=== PATIENT | female | born 1990 | race African-American/Black ===

== ENCOUNTER 2025-05-29 23:25 | Emergency (ER) | payer SELFPAY ==
[2025-05-29 23:29] VITALS: BP 116/76; PULSE 71; RESP 16; TEMP 36.9; O2SAT 96; BMI 29.0
--- NOTE | 2025-05-29 23:41 | XRR_ITS ---
PROCEDURE INFORMATION: Exam: XR Right Tibia and Fibula Exam date and time: 05/29/2025 11:45 PM Age: 35 years old Clinical indication: Injury or trauma; Fall; Blunt trauma; Lower leg; Right; EMS arrival for rle injury. Deformity to distal tib/fib. TECHNIQUE: Imaging protocol: Radiologic exam of the right tibia and fibula. Views: 2 views. COMPARISON: No relevant prior studies available. FINDINGS: Bones/joints: Distal transverse shaft fracture of the right tibia with mild medial angulation. No foreshortening. No impaction. Distal transverse shaft fracture of the right fibula with mild medial angulation. No foreshortening. No impaction. Fracture through the base of the right medial malleolus. Apparent widening of the right tibiotalar joint. Soft tissues: Posttraumatic change. XR/XR tibia fibula RT 2V [id number] IMPRESSION: 1. Fractures of the right tibia and fibula as above. 2. Fracture through the base of the medial malleolus with widening of the tibiotalar joint. Recommend dedicated imaging of the right ankle.
[2025-05-30] MEDS: HYDROcodone-acetaminophen 7.5-325 mg Tablet 1 TAB PO (00:05)
--- NOTE | 2025-05-30 00:15 | XRR_ITS ---
PROCEDURE INFORMATION: Exam: XR Right Ankle Exam date and time: 05/30/2025 12:35 AM Age: 35 years old Clinical indication: Injury or trauma; Fracture, traumatic; Displaced; Fibula and tibia; Right; Fracture of distal tibia and fibula. Dedicated ankle series due to widening tibiotalus joint. ; Additional info: Ankle FX TECHNIQUE: Imaging protocol: Radiologic exam of the right ankle. Views: 3 or more views. COMPARISON: CR (LOW EXM, ) 05/29/2025 11:45 PM FINDINGS: Bones/joints: Distal shaft transverse fractures with medial angulation of the tibia and fibula are again noted. Fracture through the base of the medial malleolus, with mild distraction. Soft tissues: Traumatic soft tissue changes throughout the visualized field of view. XR/XR ankle RT min 3V* [id number] IMPRESSION: 1. Fracture through the base of the medial malleolus with mild distraction. Joint spaces overall maintained. 2. Fractures of the tibia and fibula are again seen.
--- NOTE | 2025-05-30 00:26 | ED_ITS ---
HPI - Extremity Problem General: Chief complaint: Extremity Injury, Lower Stated complaint: LEG INJURY Time Seen by Provider: 05/29/25 23:37 Source: patient Mode of arrival: EMS Limitations: language barrier History of Present Illness: Patient is a 35-year-old female who presents emergency department via EMS due to an injury to her right lower leg. Patient is Senegalese-speaking so defense analyst was utilized. She reportedly dropped a large toolbox on her leg, and she arrives with obvious deformity and has not been able to bear weight secondary to pain. No distal paresthesias or paralysis noted. No coolness to the right lower extremity, and her pulses are intact. Reporting 10/10 pain at this time. This occurred approximately 1 hour prior to arrival. MD Complaint: extremity pain Onset (ago): hour(s) Location: right and lower extremity Associated symptoms: Deny chest pain, fever(s) or rash Related Data Previous Rx's ?Medication ?Instructions ?Recorded hydrocodone 7.5 mg-acetaminophen 1 tab PO Q8H PRN pain #20 tabs 05/30/25 325 mg tablet Allergies Allergy/AdvReac Type Severity Reaction Status Date / Time No Known Allergies Allergy Verified 05/29/25 23:33 Review of Systems General: Reports: 10 or more systems reviewed and unremarkable except in HPI and below Const: Denies: fever(s) or chills Card: Denies: chest pain Resp: Denies: dyspnea or productive cough GI: Denies: abdominal pain, nausea, vomiting or diarrhea : Denies: flank pain Musc: Reports: extremity pain (Right lower extremity), extremity swelling (Right lower extremity) and limited range of motion; Denies: neck pain, back pain, joint pain, joint swelling, joint redness, joint warmth or muscle weakness Skin/Breast: Denies: rash Neuro: Denies: headache(s), numbness in extremities or weakness in extremities Physical Exam Const: COMMON NORMALS: no acute distress, patient oriented x3, no limitations, healthy appearing, alert and well nourished HENMT: COMMON NORMALS: normocephalic and atraumatic HEAD & SCALP: normocephalic and atraumatic Neck/C-Spine: COMMON NORMALS: full ROM, supple and no meningeal signs Resp: COMMON NORMALS: normal respiratory effort, No use of accessory muscles and clear to auscultation bilaterally AUSCULTATION: clear to auscultation bilaterally Cardio: COMMON NORMALS: regular rate and regular rhythm RATE: regular rate RHYTHM: regular rhythm Extremity: NARRATIVE EXTREMITY EXAM: There is mild deformity and swelling to right distal lucio, however the area is not significantly tender to palpation. Dorsalis pedis and posterior tibial pulse are both palpable. No coolness to the right lower extremity. Able to move her digits. Ankle nontender to palpation. Knee nontender to palpation. Neuro: COMMON NORMALS: patient oriented x3, moves all extremities, no focal motor deficits and no sensory deficits noted SENSORIUM/ORIENTATION: Yes alert MENINGEAL SIGNS: Yes no meningeal signs Skin: COMMON NORMALS: no rashes or lesions noted GENERAL SKIN EXAM: no sherrie hes or lesions noted Course Vital Signs: Vital signs: Vital Signs Temperature 98.4 F 05/29/25 23:29 Pulse Rate 78 05/30/25 03:13 Respiratory Rate 16 05/30/25 03:13 Blood Pressure 117/75 05/30/25 03:13 Pulse Oximetry 100 05/30/25 03:13 Oxygen Delivery Me thod Room Air 05/29/25 23:29 MDM - Extremity (Nontraumatic) Medical Decision Making This patient presented by ambulance after dropping a large toolbox on her right lower leg, causing soft tissue swelling and mild deformity. Pulses were palpable distally, there was no coolness of the extremity and no paralysis. She was able to move her toes and strength distally were intact, however x-ray showing fracture of both the right tibia and fibula, as well as fracture of the medial malleolus. Patient was also Senegalese-speaking, so defense analyst was utilized and I do have concern for follow-up and continuity of her care. I spoke with Dr. Viera, orthopedist, who is saying to put this in the splint and he will see them in the office on Saturday for follow-up. Patient is placed in posterior long-leg splint, post splint neurovascular status is intact. She has had no changes in her neurovascular status throughout the ED stay, pain has been controlled with [place]. Through an defense analyst, she is given strict return precautions to the emergency department and her discharge instructions printed in [place]e so that she is informed to follow-up on Saturday as this will likely need surgery. Patient endorses understanding. Lab Data Radiology Impressions Tibia/Fibula X-Ray 05/29/25 23:41 IMPRESSION: 1. Fractures of the right tibia and fibula as above. 2. Fracture through the base of the medial malleolus with widening of the tibiotalar joint. Recommend dedicated imaging of the right ankle. Ankle X-Ray 05/30/25 00:15 IMPRESSION: 1. Fracture through the base of the medial malleolus with mild distraction. Joint spaces overall maintained. 2. Fractures of the tibia and fibula are again seen. All radiology interpretation(s) finalized by discharge Discharge Plan Discharge Patient Disposition: Home Clinical Impression: Fracture of tibia and fibula Qualifiers: Encounter type: initial encounter Fracture type: closed Laterality: right Qualified Code(s): S82.201A - Unspecified fracture of shaft of right tibia, initial encounter for closed fracture Fracture of medial malleolus Qualifiers: Encounter type: initial encounter Fracture type: closed Fracture alignment: nondisplaced Laterality: right Qualified Code(s): S82.54XA - Nondisplaced fracture of medial malleolus of right tibia, initial encounter for closed fracture Condition: Stable Prescriptions: New hydrocodone-acetaminophen 7.5-325 mg tablet 1 tab PO Q8H PRN (Reason: pain) Qty: 20 0RF Discharge Orders: Discharge ED (Routine); Ordered 05/30/25 Ordered By: Harpreet aPvon Other Ambulatory Orders: DME: Wheelchair (Order) Location: None Selected Ordered By: Manohar Kenyon Patient Instructions: Opioid Safety, Pain Management, Patient Portal & Shawna Instructions Activity Restrictions/Additional Instructions: Instrucciones de arti ortop?dica Diagn?stico: Fractura de tibia, peron? y mal?olo medial derechos por aplastamiento. Tratamiento realizado: F?edison posterior de pierna larga. Movilizaci?n: No apoyar peso en la pierna derecha. Uso de muletas. Instrucciones generales: - Mantener la f?edison seca y limpia. No retirarla ni manipularla. - No apoyar el pie derecho en el suelo bajo ninguna circunstancia hasta nueva indicaci?n m?dica. - Utilizar las muletas en todo momento para desplazarse. - Mantener la pierna elevada (por encima del nivel del coraz?n) siempre que sea posible para reducir la hinchaz?n. - Judicial Law Clerk los dedos del pie derecho frecuentemente para estimular la circulaci?n, siempre que no cause dolor intenso. Medicamentos: - Tisha los analg?sicos prescritos seg?n indicaci?n m?dica. - Si se le indic? anticoagulaci?n, seguir las instrucciones espec?ficas. Citas y seguimiento: - Acudir puntualmente a la consulta con el ortopedista el heber para valoraci?n y seguimiento. Signos de alarma ? Regrese de inmediato a urgencias si presenta: - Dolor intenso y progresivo en la pierna, que no mejora con los analg?sicos y parece desproporcionado a la lesi?n. - Sensaci?n de hormigueo, adormecimiento o p?rdida de sensibilidad en el pie o los dedos. - Dificultad o incapacidad para lumber mover los dedos del pie. - Hinchaz?n marcada, endurecimiento o tensi?n excesiva de la pierna o el pie. - Cambios de color en los dedos (palidez, coloraci?n azulada o morada). - Frialdad en el pie o los dedos. - Fiebre mayor a 38?C, salida de pus, mal olor o enrojecimiento alrededor de la f?edison. - Cualquier otro s?ntoma que le preocupe o que considere grave. Precauciones espec?ficas por riesgo de s?ndrome compartimental: - El s?ndrome compartimental es pola complicaci?n grave que puede ocurrir despu?s de fracturas por aplastamiento. Se caracteriza por dolor intenso, hinchaz?n, adormecimiento, dificultad para lumber mover los dedos y cambios de color o temperatura en el pie. - Si presenta alguno de estos s?ntomas, acuda de inmediato a urgencias, ya que el tratamiento debe ser r?pido para evitar da?o permanente.[1] https://pubme d.ncbi.nlm.nih.gov/52082062 [2] https://www.[employer].org/media/mkbnhqtw/ortho_guidelines.pdf [3] https://pubmed.ncbi.nlm.nih.gov/47988401 [4] https://jamanetwork.com/journals/jamasurgery/fullarticle/07.09jamasurg.2018.1050?utm_source=openevidence&utm_medium=referral [5] https://pubmed.ncbi.nlm.nih.gov/79269474 [6] https://pubmed.ncbi.nlm.nih.gov/83745031 [7] https://pubmed.ncbi.nlm.nih.gov/34423940 Recomendaciones adicionales: - No introducir objetos dentro de la f?edison. - No mojar la f?edison; si se moja, acuda a revisi?n. - No automedicarse ni aplicar cremas o juan daniel caseros en la momo lesionada. - No conducir veh?culos ni realizar actividades que requieran apoyo en la [facility]. Contacto: - En gina de dudas o aparici?n de signos de alarma, acuda a urgencias o comun?quese con el servicio de ortopedia. Nota: Estas indicaciones son fundamentales para valle recuperaci?n y para evitar complicaciones graves. Siga estrictamente las recomendaciones y acuda a ayanan citas de control. [1] https://pubmed.ncbi.nlm.nih.gov/22412555 [2] https://www.facs.org/media/mkbnhqtw/ortho_guidelines.pdf [3] https ://pubmed.ncbi.nlm.nih.gov/98450874 [4] https://jamanetwork.com/journals/jamasurgery/fullarticle/10.1001/jamasurg.2019.1 050?utm_source=openevidence&utm_medium=referral [5] https://pubmed.ncbi.nlm.nih. gov/73900401 [6] https://pubmed.ncbi.nlm.nih.gov/36653245 [7] https://pubmed.ncbi.nlm.nih.gov/12756282 References * Review: Acute Compartment Syndrome of the Foot https://pubmed.ncbi.nlm.nih.gov/60958277 . Jessi Hernandez, Judi Gupta. Foot & [employer] International. 2003;24(2):180-7. doi:10.1177/717218943062416085. * Best Practices In The Management Of Orthopaedic Trauma https://www.[employer]Builder/mkbnhqtw/ortho_guidelines.pdf . Sancho Kaiser MD [facility], Gregorio Horne MD PhD [facility], Arcelia Dawn MD [facility], et al. [employer] (2015). * Predictors of Compartment Syndrome After Tibial Fracture https://pubmed.ncbi.nlm.nih.gov/13481882 . Jaqueline MM, Michael AD, Susana S A, Chun RA, Maria Luisa CM. Journal of Orthopaedic Trauma. 2015;29(10):451- 5. doi:10.1097/BOT.2756473087297339. * Diagnostic Modalities for Acute Compartment Syndrome of the Extremities: A Systematic Review https://jamanetwork.com/journals/jamasurgery/fullarticle/10.1001/jamasurg.2019 .1050?utm_source=openevidence&utm_medium=referral . Yee SJ, Berhnae MM, Gia A, et al. [employer]. 2019;154(7):655-665. doi:10.1001/jamasurg.2019.1050. * Acute Compartment Syndrome https://pubmed.ncbi.nlm.nih.gov/29511919 . Pemberton AH. Injury. 2017;48 Suppl 1:S22-S25. doi:10.1016/j.injury.2017.04.024. * Crush Injury and Syndrome: A Review for Emergency Clinicians https://pubmed.ncbi.nlm.nih.gov/90871367 . Raj B, Silver SY, Waldemar M. [facility] Journal of Emergency Medicine. 202;69:180-187. doi:10.1016/j.ajem.2022.04.029. * Crush Syndrome: A Case Report and Review of the Literature https://pubmed.ncbi.nlm.nih.gov/57396455 . Marietta Gonzales, Cliff SR. The Journal of Emergency Medicine. 2014;46(2):313-9. doi:10.1016/j.jemermed.2013.08.052. Print Language: Senegalese Coding Level of Care Code ED Snowmobile Mechanic for Eliot Castro
[2025-05-30] MEDS: HYDROmorphone 0.5 MG/0.5 ML INJ 1 MG IVP (00:55)
[2025-05-30] MEDS: ondansetron 2 mg/ML SDV 2 mL 4 MG IVP (00:55)
[2025-05-30 03:13] VITALS: BP 117/75; PULSE 78; RESP 16; O2SAT 100
--- NOTE | 2025-05-31 08:25 | DCPLANNER ---
messaged ortho for er f/u
== END 2025-05-30 03:14 | disposition home or self-care (01) ==
PROVIDERS: Emergency Provider Physician Assistant
DX: S82.54XA Nondisplaced fracture of medial malleolus of right tibia, initial encounter for closed fracture (principal); S82.831A Other fracture of upper and lower end of right fibula, initial encounter for closed fracture; W20.8XXA Other cause of strike by thrown, projected or falling object, initial encounter
CPT/HCPCS: 73590; 73610; 96374; 96375; 99284; J1171; J2405; J9999

== ENCOUNTER 2025-06-02 17:15 | Observation (INO) | payer SELFPAY ==
[2025-06-02] VITALS (12 sets, daily range): BP systolic 107–142; BP diastolic 57–89; PULSE 66–110; RESP 16–18; TEMP 36.3–36.9; O2SAT 89–100; BMI 29.2; BMI 26.6
--- NOTE | 2025-06-02 | XR_ITS ---
WS: [id number] Right leg including the tibia and fibula, C ARM fluoroscopy views, 06/02/2025 Clinical Data: OR PICS Comparison: Right leg, 05/29/2025 Findings: Dr. Viera reduced the midshaft fractures of the tibia and fibula and the medial malleolar fracture of the right ankle. XR/XR tibia fibula RT 2V [id number] Impression: Internal fixation of mid shaft fracture of the right tibia and medial malleolar fracture of the right ankle.
--- NOTE | 2025-06-02 13:33 | ANES.PREANE2 ---
Pre-Anesthetic Assessment Height/Weight: Height 1.63 m Temp Pulse Resp BP Pulse Ox O2 Del Method 97.4 F L 77 18 131/83 99 Room Air 06/02/25 13:17 06/02/25 13:17 06/02/25 13:17 06/02/25 13:17 06/02/25 13:17 06/02/25 13:17 Preop Diagnosis: Right tibia fracture and medial malleolus fracture Operation Date: 06/02/25 15:30 Proposed Procedures p IM Tibial Nail Insertion ORIF Tibial w/ Intramedullary Nail and ORIF medial Malleolus(Right) - Abdulkadir Viera, DO Familial anesthetic complications: None Was Beta Juan taken within 24 hours: N/A Was Clonidine taken within 24 hours: N/A Last intake: > 8 hrs Social Tobacco and No alcohol Exam alert, oriented x 3, clear to auscultation bilaterally and regular rate & rhythm Airway Mallampati: Class II Dentition: full Anesthetic Plan ASA status: 1 Anesthesia: General Risk of > 500 ml blood loss (7ml/kg in children): No Medications/Allergies Home Medications ?Medication ?Instructions ?Recorded ?Confirmed ?Last Taken ?Type hydrocodone 7.5 mg-acetaminophen 1 tab PO Q8H PRN pain #20 tabs 05/30/25 06/01/25 Unknown Rx 325 mg tablet Allergies Allergy/AdvReac Type Severity Reaction Status Date / Time No Known Allergies Allergy Verified 06/01/25 09:48 PFSH Anesthesia Social History Smoking and tobacco/nicotine status: never used tobacco/nicotine
[2025-06-02] MEDS: fentaNYL 50 mcg/mL INJ 2mL IVP (14:12)
--- NOTE | 2025-06-02 14:44 | W.PM.OPSUD ---
Surgery/Procedure H&P Update DATE OF PROCEDURE: June 02, 2025 DATE H&P PERFORMED: 06/01/25 H&P UPDATE INFORMATION: I have reviewed H&P completed within last 30 days, I have examined patient prior to procedure and No changes to prior documentation PREOP DIAGNOSIS: Right tibia fracture and medial malleolus fracture PLANNED PROCEDURE: Operation Date: 06/02/25 15:30 Proposed Procedures p IM Tibial Nail Insertion ORIF Tibial w/ Intramedullary Nail and ORIF medial Malleolus(Right) - Abdulkadir Viera DO
[2025-06-02] MEDS: ceFAZolin 2,000 mg SDV 2000 MG IVP ×2 (15:14→23:04)
--- NOTE | 2025-06-02 17:22 | P.OP_ITS ---
Operative Report Date of procedure: June 02, 2025 Pre-op diagnosis: 1. Right tibia fibula fracture 2. Right medial malleolus fracture Post-op diagnosis: same Procedure done: 1. Right tibia intramedullary nail. 2. Right medial malleolus open reduction internal fixation Surgeon: Abdulkadir Viera DO Estimated blood loss (mL): 50 Procedure: 1. Right tibia intramedullary nail. 2. Right medial malleolus open reduction internal fixation Patient was brought to the operative suite. After undergoing anesthesia patient was placed in the supine position. Patient was then had all areas impingement well-padded. Patient was then prepped and draped normal sterile fashion. Skin incision was made proximal to the patella. The protection sleeve was then inserted into the suprapatellar joint onto the center center position of the tibia. Starting wire was inserted. Opening reamer was inserted and then the ball-tipped guide was passed. The fracture was reduced and then the ball-tipped guide was passed across the fracture. This was confirmed on AP and lateral fluoroscopy. Next the length of the nail was measured. We decided on a 330 mm nail. This is a size 10 nail. The canal was reamed to 11-1/2 mm. The nail was then placed. 2 locking screws were placed distally. Next attention was brought to the proximal locking screw. A screw was placed in the dynamic slot and then the compression tool was used to compress the fracture. No screw was placed proximal distal locking position. AP and lateral fluoroscopy ensured that the fracture and nail were in good position. Next tension was brought to the medial malleolus. Skin this was made over the medial malleolus fracture was identified. A ecvin-lo-gkljn reduction clamp was used to reduce the fracture after cleaning out the joint and the fracture site. A 3.0 millimeter screw was placed across the fracture. And to 4 oh partially- threaded screws were placed. Fracture was x-rayed had good position and screws were in good position. Wounds were irrigated closed with Vicryl and margot. Sterile dressings were applied patient was placed in a posterior splint and transferred to the PACU in stable condition.
--- NOTE | 2025-06-02 18:00 | ANE.PACU2 ---
Inpatient post-anesthesia follow up: Airway intact: Yes Vital signs: Temperature 97.5 F Pulse Rate 83 Respiratory Rate 16 Blood Pressure 112/73 Pulse Oximetry 99 Oxygen Delivery Me thod Room Air Oxygen Flow Rate 10 Fraction of Inspir ed Oxygen Hydration adequate: Yes Nausea and vomiting: No Pain level: 1 Mental status: Baseline
[2025-06-02] MEDS: HYDROmorphone 0.5 MG/0.5 ML INJ IVP ×2 (18:17→23:05)
[2025-06-02] MEDS: HYDROcodone-acetaminophen 5-325 mg Tablet PO (18:17)
[2025-06-03 00:36] VITALS: BP 123/70; PULSE 96; RESP 16; TEMP 37.1; O2SAT 98
[2025-06-03] MEDS: HYDROmorphone 0.5 MG/0.5 ML INJ IVP ×3 (02:33→11:01)
[2025-06-03 04:18] VITALS: BP 112/65; PULSE 80; RESP 16; TEMP 36.9; O2SAT 99
[2025-06-03] MEDS: HYDROcodone-acetaminophen 5-325 mg Tablet PO ×2 (04:43→08:15)
[2025-06-03 08:11] VITALS: BP 112/73; PULSE 83; RESP 16; TEMP 36.4; O2SAT 99
[2025-06-03] MEDS: ceFAZolin 2,000 mg SDV 2000 MG IVP (08:17)
--- NOTE | 2025-06-03 10:29 | P.DS_ITS ---
Discharge Providers Date of Admission: 06/02/25 17:15 Date of Discharge: June 03, 2025 Attending Provider at Admission: Abdulkadir Viera DO Attending Provider at Discharge: Abdulkadir Viera DO Physical Exam Narrative: Patient and leg pain this morning but tolerable. Her foot is neurovasc intact move her toes sensation intact good cap refill Discharge Data Studies Completed and Pending Pending at discharge Category Date Time Status C-arm Fluoroscopy [id number] Routine Exams 06/02/25 13:03 Taken Vitals Last Vital Signs Temp 97.5 F L 06/03/25 08:11 Pulse 83 06/03/25 08:11 Resp 16 06/03/25 08:11 BP 112/73 06/03/25 08:11 Pulse Ox 99 06/03/25 08:11 O2 Del Method Room Air 06/03/25 08:11 O2 Flow Rate 10 06/02/25 17:39 Discharge Plan Discharge Patient Disposition: Home Condition: Stable Prescriptions: New hydrocodone-acetaminophen 5-325 mg tablet 1 - 2 tab PO .Q4-6H Qty: 40 0RF Discontinued hydrocodone-acetaminophen 7.5-325 mg tablet 1 tab PO Q8H PRN (Reason: pain) Qty: 20 0RF Discharge Order = DC NOW: Discharge Order (Routine); Ordered 06/03/25 Ordered By: Abdulkadir Viera Referrals: Abdulkadir Viera DO [Physician, Orthopedics] - 06/15/25 1:30 pm Discharge Diet: Advance as tolerated Discharge Activity: Limit activity as instructed Patient Instructions: Acute Wound Care (DC), Post Anesthesia Care Activity Restrictions/Additional Instructions: You are being discharged from the hospital today during which time you have been under the care of Dr. Viera. You had a right tibia and medial malleolus fracture. You were treated for this injury with intramedullary nail of right tibia and open reduction internal fixation of a right medial malleolus. You may resume you normal diet (including any special diets as directed by your primary doctor) as well as your home medications. You should follow up with you primary doctor if you have any questions regarding medication you took prior to your stay in the hospital. You may take your pain medication as prescribed. After the first few days, take your pain medication as needed. Do not drive or drink alcohol while taking your pain medication. Your injury may increase your risk of developing a blood clot,or DVT, in your arm or leg. This could potentially dislodge and travel to your lungs and become a life threatening condition called apulmonary embolus,or PE. You have been prescribed aspirin to be taken to prevent this. Frequent movement of the ankle and toes will also help prevent this from occurring. If you develop any new or worsening cough, chestpain, bloody sputum or shortness of breath, call 911 or go to the EmergencyRoom. Always keep your surgical incision/dressing clean and dry. If you experience increasing pain at your incision site, redness, swelling, increasing discharge, foul odors, or fevers (greater than 100.4), night sweats or chills you should call the office at the above number. If you feel this is an emergency you should be evaluated in the Emergency Department of a nearby hospital. Orthopedic Patient Instructions Summary: Weight Bearing: Nonweightbearing right lower extremity for 6 weeks Activity: As tolerated. Diet: Regular. Wound Care: Keep dressing clean and dry. Anticoagulation: Aspirin Pain Medication: Take only as needed. Ice, rest and elevation will be of great benefit. Please plan to follow-up [facility] Dr Viera in 2 weeks. You will need to call the clinic [phone] to schedule this visit. If cannot follow-up here need to get an appointment to get your wounds evaluated within 2 weeks. Thank you far allowing me to participate in your care. Do not hesitate to call the office with any questions or concerns. Discharge Attestations Time Spent in Discharge Care*: less than 30 min Quality Metrics Clinical Quality Measures [ No reported AMI, CVA or VTE this stay] Coding Level of Care Code Acute Code for Ch Matthew
[2025-06-03 11:51] VITALS: BP 122/81; PULSE 84; RESP 16; TEMP 36.8; O2SAT 97
== END 2025-06-03 12:30 | disposition home or self-care (01) ==
LOC: OR 17:24 → MEDSURG 23:10
PROVIDERS: Admitting Provider Orthopaedic Surgery; Visit Provider Orthopaedic Surgery
PROC: (CPT 27766; principal; 2025-06-02 15:10)
DX: S82.51XA Displaced fracture of medial malleolus of right tibia, initial encounter for closed fracture (principal); S82.401A Unspecified fracture of shaft of right fibula, initial encounter for closed fracture; W20.8XXA Other cause of strike by thrown, projected or falling object, initial encounter
CPT/HCPCS: 27766; 27759; 73590; 76000; 97116; 97162; 97165; 97530; C1713; G0378; J0690; J1171; J2250; J2405; J2704; J3010; J7030; J9999